=== PATIENT | female | born 1960 | race Caucasian/White ===

== ENCOUNTER 2017-04-22 20:54 | Emergency (ER) | payer OTHER ==
[~2017-04-22 20:54] MED LIST: LEVEMIR100 UNIT/1 SC; NORCO 7.5-3251 EACH PO
[2017-04-22 21:47] LABS: HEMOGLOBIN 12.6 gm/dl (12.3-15.3); RED BLOOD COUNT 4.37 M/UL (4.00-5.10); WHITE BLOOD COUNT 9.3 K/UL (4.5-11.0)
[2017-04-22 22:07] LABS: BUN/CREATININE RATIO 27 (0-10)
== END 2017-04-23 00:30 | disposition home or self-care (01) ==
LOC: ER1 20:54
PROVIDERS: Radiology Radiation Oncology
DX: H81.10 Benign paroxysmal vertigo, unspecified ear (principal); N39.0 Urinary tract infection, site not specified; J44.9 Chronic obstructive pulmonary disease, unspecified; E11.9 Type 2 diabetes mellitus without complications
CPT/HCPCS: 36415; 71010; 80053; 81001; 82550; 82553; 83874; 84484; 85025; 93005; 96374; 96375; 99284; J0696; J1200; J2405; J7030; J7050

== ENCOUNTER → 2021-06-21 | Outpatient (CLI) | payer OTHER ==
[~2021-06-21] MED LIST changes: +KEFLEX CAP 500500 MG PO; +ZOFRAN4 MG PO
== END ==
LOC: MAMO 09:00
DX: Z12.31 Encounter for screening mammogram for malignant neoplasm of breast (principal); M79.672 Pain in left foot; M19.072 Primary osteoarthritis, left ankle and foot
CPT/HCPCS: 73630; 77063; 77067

== ENCOUNTER → 2021-07-21 | Outpatient (CLI) | payer OTHER | LOC: MAMO 07-20 15:00 | DX: R92.8 Other abnormal and inconclusive findings on diagnostic imaging of breast (principal) | CPT/HCPCS: 76641-LT; 77065; G0279 ==

== ENCOUNTER → 2021-08-13 | Outpatient (CLI) | payer OTHER | LOC: HEART 5 09:42 | DX: R06.02 Shortness of breath (principal) | CPT/HCPCS: 71046; 94060; 94729 ==

== ENCOUNTER 2021-10-04 16:24 | Emergency (ER) | payer OTHER ==
[2021-10-04 17:59] LABS: HEMOGLOBIN 12.1 gm/dl (12.3-15.3); RED BLOOD COUNT 4.33 M/UL (4.00-5.10); WHITE BLOOD COUNT 9.7 K/UL (4.5-11.0)
[2021-10-04 18:23] LABS: BUN/CREATININE RATIO 26 (0-10)
[2021-10-04] MEDS ORDERED: IPRAT-ALBUT 0.5-3 ML INH (21:10)
[2021-10-04] MEDS ORDERED: PREDNISONE20 MG PO (21:10)
[2021-10-04] MEDS ORDERED: OMNICEF 300 MG300 MG PO (21:10)
[2021-10-04] MEDS ORDERED: DOXYCYCLINE HY100 MG PO (21:10)
== END 2021-10-04 21:20 | disposition home or self-care (01) ==
LOC: ER1 16:24
PROVIDERS: Physician Assistant
DX: J44.0 Chronic obstructive pulmonary disease with (acute) lower respiratory infection (principal); J44.1 Chronic obstructive pulmonary disease with (acute) exacerbation; J18.9 Pneumonia, unspecified organism; G47.33 Obstructive sleep apnea (adult) (pediatric); Z99.81 Dependence on supplemental oxygen; Z20.822 Contact with and (suspected) exposure to COVID-19
CPT/HCPCS: 0240U; 36600; 71045; 80053; 82550; 82553; 82803; 83874; 84484; 85025; 93005; 94640; 94664; 96374; 99285; J0696; J2930

== ENCOUNTER → 2021-11-04 | Outpatient (CLI) | payer OTHER ==
[~2021-11-04] MED LIST changes: +DOXYCYCLINE HY100 MG PO; +IPRAT-ALBUT 0.5-3 ML INH; +OMNICEF 300 MG300 MG PO; +PREDNISONE20 MG PO
== END ==
LOC: SLEEP 10:00
DX: G47.33 Obstructive sleep apnea (adult) (pediatric) (principal)
CPT/HCPCS: 95811

== ENCOUNTER → 2022-01-04 | Outpatient (CLI) | payer OTHER | LOC: EXRD 09:05 | DX: J44.9 Chronic obstructive pulmonary disease, unspecified (principal) | CPT/HCPCS: 71046 ==

== ENCOUNTER → 2022-03-22 | Outpatient (CLI) | payer OTHER | LOC: KOH-I 03-15 14:30 | DX: R06.02 Shortness of breath (principal); E04.1 Nontoxic single thyroid nodule | CPT/HCPCS: 71250 ==

== ENCOUNTER → 2022-04-14 | Outpatient (CLI) | payer OTHER | LOC: EXRD 09:37 | DX: M25.561 Pain in right knee (principal); R10.31 Right lower quadrant pain; M17.11 Unilateral primary osteoarthritis, right knee | CPT/HCPCS: 73564; 74018 ==

== ENCOUNTER → 2022-05-17 | Outpatient (CLI) | payer OTHER | LOC: KOH-I 08:40 | DX: M17.0 Bilateral primary osteoarthritis of knee (principal); R10.9 Unspecified abdominal pain; N20.0 Calculus of kidney; K43.9 Ventral hernia without obstruction or gangrene | CPT/HCPCS: 73564; 74176 ==

== ENCOUNTER → 2022-06-15 | Outpatient (CLI) | payer OTHER | LOC: MAMO 08:49 → EXRD 09:30 → MAMO 09:49 | DX: R92.8 Other abnormal and inconclusive findings on diagnostic imaging of breast (principal) | CPT/HCPCS: 77065; 77080; G0279 ==